=== PATIENT | female | born 1965 | race Caucasian/White ===

== ENCOUNTER 2021-04-02 08:46 | Outpatient (CLI) | payer MEDICARE, BC ==
[~2021-04-02 08:46] MED LIST: AMIT-189 PO; AMLO10TA PO; ASPI-1 PO; BACL10TA PO; BIOT1TAB PO; DIPH-681 PO; DULO-31 PO; DULR RC; EPIN0.3P8 IM; ESZO3TAB40 PO; FLUT16SP26 BOTHNARES; HYDR-3972 PO; LANS30CA56 PO; LIDOCAINE PATCH5% TOP; LORA-512 PO; METH5TAB PO; MULT-1085 PO; OMEG500C PO; OXYC10TA57 PO; VALA500T PO; WALKERFR
== END 2021-04-02 23:59 | disposition home or self-care (01) ==
LOC: RAD 08:46
PROVIDERS: ATTEND Psychiatry & Neurology Neurology
DX: R94.01 Abnormal electroencephalogram [EEG] (principal)
CPT/HCPCS: 95819

== ENCOUNTER 2023-08-09 06:23 | Day surgery (SDC) | payer MEDICARE, BC ==
[2023-08-03 13:58] LABS: BASOPHILS # (AUTO) 0.1 X10'3 (0-0.2); EOSINOPHILS % (AUTO) 0.8 % (0-6); LYMPHOCYTES # (AUTO) 1.7 X10'3 (1.1-4.8); LYMPHOCYTES % (AUTO) 28.9 % (21-51); MEAN CORPUSCULAR HEMOGLOBIN 31.5 PG (27.0-31.0); MEAN CORPUSCULAR HGB CONC 32.7 g/dL (33.0-36.5); MEAN CORPUSCULAR VOLUME 96.3 FL (78-98); MONOCYTES # (AUTO) 0.3 X10'3 (0-0.9); MONOCYTES % (AUTO) 5.4 % (2-12); NEUTROPHILS # (AUTO) 3.8 X10'3 (1.8-7.7); NEUTROPHILS % (AUTO) 63.9 % (42-75); PRE OP HEMATOCRIT 40.2 % (35.0-45.0); PRE OP HEMOGLOBIN 13.1 g/dL (12.0-16.0); PRE OP PLATELET COUNT 232 X10'3 (140-440); PRE OP WHITE BLOOD COUNT 5.9 10'3 (4.8-10.8); RED BLOOD COUNT 4.17 X10'6 (4.20-5.60); RED CELL DISTRIBUTION WIDTH 14.3 % (11.5-14.5)
[2023-08-03 14:11] LABS: ALBUMIN 3.5 G/DL (3.4-5.0); ALBUMIN/GLOBULIN RATIO 0.9 (1.1-1.5); ALKALINE PHOSPHATASE 144 IU/L (46-116); BLOOD UREA NITROGEN 10 MG/DL (7-18); BUN/CREATININE RATIO 14.7 (10.0-20.0); CALCIUM 8.3 MG/DL (8.5-10.1); CHLORIDE 104 MMOL/L (99-107); CREATININE 0.68 MG/DL (0.40-0.90); PRE OP ALT 21 U/L (30-65); PRE OP ANION GAP 5 (8-16); PRE OP AST 15 U/L (10-37); PRE OP BILIRUB, TOTAL 0.2 MG/DL (0.0-1.0); PRE OP GLUCOSE 104 MG/DL (70-104); PRE OP POTASSIUM 3.6 MMOL/L (3.4-5.1); PRE OP SODIUM 137 MMOL/L (135-145); TOTAL CARBON DIOXIDE 28.1 MMOL/L (24-32); TOTAL PROTEIN 7.5 G/DL (6.4-8.2); eGFR 89 ML/MIN
[~2023-08-09] VITALS: Ht 167.6 cm; Wt 72.5 kg
[2023-08-09] VITALS (10 sets, daily range): BP systolic 93–126; BP diastolic 60–69; PULSE 71–84; RESP 13–16; TEMP 98.4; O2SAT 95–100
[2023-08-09] MEDS: cefazolin 2gm/D5W 100mL 100 ML IV ONE (05:30)
[~2023-08-09 06:23] MED LIST changes: -AMIT-189 PO; -ASPI-1 PO; -BACL10TA PO; -BIOT1TAB PO; +BUPR1FIL54; +CYCL-1 PO; -DIPH-681 PO; -DULR RC; -EPIN0.3P8 IM; +FAMO20TA8 PO; -FLUT16SP26 BOTHNARES; +FREM225S SUBCUT; -LANS30CA56 PO; -LIDOCAINE PATCH5% TOP; -LORA-512 PO; -METH5TAB PO; -MULT-1085 PO; +NALO25TA4 PO; -OMEG500C PO; -OXYC10TA57 PO; +PANT40TA54 PO; +PREG75CA76 PO; +PREVCR VG; +SIMV-42 PO; +SUMA50TA17 PO; +TOPI25TA49 PO; -WALKERFR
[2023-08-09] MEDS: famotidine 20mg tablet PO ONE (07:37)
[2023-08-09] MEDS: ringers solution, lacted 1,000 ML IV SCH (07:37)
[2023-08-09] MEDS ORDERED: cloNIDine hcl/PF 100mcg/ml inj ONE (09:02)
[2023-08-09] MEDS ORDERED: midazolam 1 mg/ML 2ml injection ONE (09:07)
[2023-08-09] MEDS ORDERED: fentaNYL/PF 50MCG/1 ML 2ML syringe ONE (09:07)
[2023-08-09] MEDS ORDERED: propofol inj 20 ML IV ONE (09:08)
[2023-08-09] MEDS ORDERED: ROPIVAcaine 0.5% (5mg/ml) 30ml vial ONE (09:08)
[2023-08-09] MEDS ORDERED: sevoflurane 250ml liquid IH ONE (10:09)
[2023-08-09] MEDS ORDERED: dexamethasone sod phosphate 4mg/ml inj. ONE (11:26)
[2023-08-09] MEDS ORDERED: ondansetron/PF 4mg/2ml inj ONE (11:26)
[2023-08-09] MEDS ORDERED: ondansetron/PF 4mg/2ml inj IV PRN (11:45)
[2023-08-09] MEDS ORDERED: proCHLORperazine 10 MG/2 ml inj IV PRN (11:45)
[2023-08-09] MEDS ORDERED: morphine 4 MG/ML inj SYRINge IV PRN (11:45)
[2023-08-09] MEDS ORDERED: meperidine/PF 25mg/ml syringe IV PRN ×3 (11:45)
[2023-08-09] MEDS ORDERED: ringers solution, lacted 1,000 ML IV SCH (11:45)
[2023-08-09] MEDS ORDERED: morphine 2 MG/ML inj. syringe IV PRN (11:45)
[2023-08-09] MEDS: HYDROcodone/acetaminophen 10/325mg tab PO PRN (12:24)
[2023-08-09] MEDS ORDERED: cyclobenzaprine 10mg tablet PO SCH (13:00)
[2023-08-09] MEDS ORDERED: pregabalin 75mg capsule PO SCH (13:00)
[2023-08-09] MEDS ORDERED: duloxetine 30mg CAPSULE.DR PO SCH (20:00)
[2023-08-09] MEDS ORDERED: topiramate 25mg tablet PO SCH (20:00)
[2023-08-09] MEDS ORDERED: pantoprazole 40mg Tablet.DR PO SCH (20:00)
[2023-08-10] MEDS ORDERED: famotidine 20mg tablet PO SCH (08:00)
[2023-08-10] MEDS ORDERED: valacyclovir 500mg tablet PO SCH (11:49)
== END 2023-08-09 13:00 | disposition home or self-care (01) ==
LOC: PAS 06:23
PROVIDERS: ATTEND Orthopaedic Surgery
DX: M19.011 Primary osteoarthritis, right shoulder (principal); M75.41 Impingement syndrome of right shoulder; G89.18 Other acute postprocedural pain; I10 Essential (primary) hypertension; G47.33 Obstructive sleep apnea (adult) (pediatric); G43.909 Migraine, unspecified, not intractable, without status migrainosus; K21.9 Gastro-esophageal reflux disease without esophagitis; M79.7 Fibromyalgia; G47.00 Insomnia, unspecified; M19.90 Unspecified osteoarthritis, unspecified site; Z87.891 Personal history of nicotine dependence; Z85.828 Personal history of other malignant neoplasm of skin; Z85.51 Personal history of malignant neoplasm of bladder; Z79.1 Long term (current) use of non-steroidal anti-inflammatories (NSAID); Z79.891 Long term (current) use of opiate analgesic; Z79.899 Other long term (current) drug therapy; Z96.652 Presence of left artificial knee joint; Z98.51 Tubal ligation status; Z98.890 Other specified postprocedural states; Z88.5 Allergy status to narcotic agent; Z88.6 Allergy status to analgesic agent; Z88.8 Allergy status to other drugs, medicaments and biological substances; Z83.3 Family history of diabetes mellitus; Z82.49 Family history of ischemic heart disease and other diseases of the circulatory system
CPT/HCPCS: 29824; 29826; 36415; 64415; 80053; 82948; 85025; 87081; J0690; J0735; J1100; J2250; J2405; J2704; J2795; J3010; J3490; J7120; Z7506; Z7508; Z7512; A4565; A4618; A6253; A6449; A7000